=== PATIENT | male | born 1965 | race Asian ===

== ENCOUNTER 2018-02-02 18:30 | Emergency (ER) | payer BC ==
--- NOTE | 2018-02-02 18:57 | EDPHY ---
H & P Stated Complaint: Seizure Time Seen by Provider: 02/02/18 18:57 HPI/ROS: CHIEF COMPLAINT: Seizure HISTORY OF PRESENT ILLNESS: The patient is a [place] national who presents to the emergency department with a work colleague after he was observed to have a witnessed seizure on an airplane approximately 2 hr ago. His colleague reports generalized tonic-clonic seizure that occurred while the patient was sitting. The patient had no fall or traumatic injury. 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 He has not had any evaluation by Neurology. The patient takes a proton pump inhibitor for gastritis. The patient takes no additional medications. He denies significant alcohol consumption. The patient denies any acute headache, numbness, weakness, fever, cough or congestion. REVIEW OF SYSTEMS: A comprehensive 10 point review of systems is otherwise negative aside from elements mentioned in the history of present illness. Source: Patient - Personal History Current Tetanus/Diphtheria Vaccine: Unsure Current Tetanus Diphtheria and Acellular Pertussis (TDAP): Unsure - Medical/Surgical History Hx Asthma: No Hx Chronic Respiratory Disease: No Hx Diabetes: No Hx Cardiac Disease: No Hx Renal Disease: No Hx Cirrhosis: No Hx Alcoholism: No Hx HIV/AIDS: No Hx Splenectomy or Spleen Trauma: No Other PMH: GERD, gastric ulcer - Social History Smoking Status: Former smoker - Physical Exam Exam: General Appearance: Alert, no distress Eyes: Pupils equal and round no pallor or injection ENT, Mouth: Mucous membranes moist Respiratory: There are no retractions, lungs are clear to auscultation Cardiovascular: Regular rate and rhythm Gastrointestinal: Abdomen is soft and nontender, no masses, bowel sounds normal Neurological: A&O, normal motor function, normal sensory exam, normal cranial nerves Skin: Warm and dry, no rashes Musculoskeletal: Neck is supple nontender Extremities: symmetrical, full range of motion Psychiatric: Patient is oriented X 3, there is no agitation Constitutional: Initial Vital Signs Temperature (C) 36.7 C 02/02/18 18:46 Heart Rate 91 02/02/18 18:46 Respiratory Rate 16 02/02/18 18:46 Blood Pressure 142/91 H 02/02/18 18:46 O2 Sat (%) 95 02/02/18 18:46 O2 Delivery Mode Room Air Allergies/Adverse Reactions: No Known Allergies Allergy (Unverified 02/02/18 18:42) Home Medications: Medication Instructions Recorded Omeprazole 02/02/18 Teprenone 02/02/18 Tums Ultra 02/02/18 Medical Decision Making - Diagnostics EKG Interpretation: EKG: Complete interpretation has been separately recorded in the [facility] archive. Summary impression: Sinus rhythm, rate 81 Imaging Results: Imaging Impressions Head CT 02/02/18 19:15 Impression: 1. Normal CT brain, without contrast. 2. Consider MRI of the brain, if there is continued clinical concern. Findings and recommendations discussed with Emergency Department physician, Jese Triana M.D., at 1939 hours, on February 02, 2018. Final report concurs with initial preliminary interpretation. ED Course/Re-evaluation: The patient presents the ED after a seizure. It sounds as if this is likely a recurrent condition for the patient. He is currently not being treated by a neurologist. The patient had no recurrent seizure activity in the ED. He has been having poor sleep secondary to stress at work. There is no history of significant alcohol consumption. The patient was noted to be neurologically intact upon arrival. A noncontrast head CT scan demonstrates no evidence of an obvious lesion or mass effect. The patient's EKG demonstrates no evidence of a significant arrhythmia. The patient was observed in the emergency department without recurrent seizure activity. I re-evaluated the patient at 8:00 p.m. and reviewed his laboratory testing workup today. The patient is traveling to [place] tomorrow and will follow up with a neurologist there. He has also been provided the contact information of our on- call neurologist. He is discharged home with customary seizure aftercare instructions. Differential Diagnosis: Differential diagnosis considered includes seizure, status epilepticus, syncope , [employer] hemorrhage, [employer] mass, metabolic abnormality, dehydration, arrhythmia - Data Points Laboratory Results: Laboratory Results 02/02/18 19:20 02/02/18 19:20 02/02/18 02/02/18 19:20 19:20 WBC 8.96 10^3/uL 10^3/uL (3.80-9.50) RBC 4.98 10^6/uL 10^6/uL (4.40-6.38) Hgb 15.5 g/dL g/dL (13.7-17.5) Hct 44.4 % % (40.0-51.0) MCV 89.2 fL fL (81.5-99.8) MCH 31.1 pg pg (27.9-34.1) MCHC 34.9 g/dL g/dL (32.4-36.7) RDW 11.8 % % (11.5-15.2) Plt Count 196 10^3/uL 10^3/uL (150-400) MPV 9.8 fL fL (8.7-11.7) Neut % (Auto) 80.0 % H % (39.3-74.2) Lymph % (Auto) 17.4 % % (15.0-45.0) Avery % (Auto) 2.1 % L % (4.5-13.0) Eos % (Auto) 0.0 % L % (0.6-7.6) Baso % (Auto) 0.3 % % (0.3-1.7) Nucleat RBC Rel Count 0.0 % % (0.0-0.2) Absolute Neuts (auto) 7.16 10^3/uL H 10^3/uL (1.70-6.50) Absolute Lymphs (auto) 1.56 10^3/uL 10^3/uL (1.00-3.00) Absolute Monos (auto) 0.19 10^3/uL L 10^3/uL (0.30-0.80) Absolute Eos (auto) 0.00 10^3/uL L 10^3/uL (0.03-0.40) Absolute Basos (auto) 0.03 10^3/uL 10^3/uL (0.02-0.10) Absolute Nucleated RBC 0.00 10^3/uL 10^3/uL (0-0.01) Immature Gran % 0.2 % % (0.0-1.1) Immature Gran # 0.02 10^3/uL 10^3/uL (0.00-0.10) Sodium 140 mEq/L mEq/L (135-145) Potassium 4.4 mEq/L mEq/L (3.3-5.0) Chloride 100 mEq/L mEq/L (97-110) Carbon Dioxide 24 mEq/l mEq/l (22-31) Anion Gap 16 mEq/L mEq/L (8-16) BUN 19 mg/dL mg/dL (7-23) Creatinine 0.8 mg/dL mg/dL (0.7-1.3) Estimated GFR > 60 Glucose 149 mg/dL H mg/dL (70-100) Calcium 9.8 mg/dL mg/dL (8.5-10.4) Departure - Departure Disposition: Home, Routine, Self-Care Clinical Impression: Seizure Condition: Good Instructions: Recurrent Seizures in Adults (ED) Additional Instructions: 1. No driving, dangerous activities such as riding a ski lift, swimming in a pool or other behavior that could put you or someone else at risk in the event of a recurrent seizure. You will need to be cleared by a neurologist to resume these activities. 2. Please return to the ED for recurrent seizure, headache, numbness, weakness, altered mental status or other concerns. 3. I recommend following up with a neurologist in [place] within the next week. 4. You have also been given the contact information of our on-call neurologist at [facility] who would be happy to see you as an outpatient. Referrals: Scottie Magana DO [Medical Doctor] - As per Instructions
[2018-02-02 19:30] LABS: PLATELET COUNT 196 10^3/uL (150-400)
--- NOTE | 2018-02-02 19:39 | CPEKG ---
Heart Rate: 81 RR Interval: 741 P-R Interval: 144 QRSD Interval: 108 QT Interval: 380 QTC Interval: 441 P Whitman: 49 QRS Whitman: 11 T Wave Whitman: 13 EKG Severity - NORMAL ECG - EKG Impression: SINUS RHYTHM Electronically Signed By: Jese Triana 02-Feb-2018 20:02:36
[2018-02-02 20:15] VITALS: BP 147/90
== END 2018-02-02 20:15 | disposition home or self-care (01) ==
DX: R56.9 Unspecified convulsions (principal); Z87.891 Personal history of nicotine dependence